=== PATIENT | female | born 1970 ===

== ENCOUNTER 2016-10-24 23:45 | Emergency (ER) | payer SELFPAY ==
[2016-10-25 01:09] LABS: BASO % 0.5 % (0.0-2.0); EOS % 0.2 % (0.0-4.0); HEMATOCRIT 29.8 % (34.0-47.0); LYMPH # 1.4 K/uL (1.0-4.3); MEAN CORPUSCULAR HEMOGLOBIN 20.3 pg (27.0-31.0); MEAN CORPUSCULAR HGB CONC 29.3 g/dL (33.0-37.0); MONO # 0.3 K/uL (0.0-0.8); NEUT # 1.9 K/uL (1.8-7.0); NEUT % 52.3 % (50.0-75.0); NRBC % 0.2 % (0.0-0.0); RED CELL DISTRIBUTION WIDTH 20.4 % (11.5-14.5); WHITE BLOOD COUNT 3.7 K/uL (4.8-10.8)
[2016-10-25 01:19] LABS: ALB/GLOB RATIO 1.1 (1.0-2.1); ALKALINE PHOSPHATASE 83 U/L (38-126); ALT/SGPT 45 U/L (9-52); AST/SGOT 67 U/L (14-36); BILIRUBIN,TOTAL 0.3 mg/dl (0.2-1.3); BLOOD UREA NITROGEN 12 mg/dl (7-17); CALCIUM 8.3 mg/dL (8.4-10.2); CARBON DIOXIDE 20 mmol/L (22-30); CHLORIDE 110 mmol/L (98-107); GFR AFRICAN-AMERICAN > 60; GLUCOSE,RANDOM 104 mg/dL (65-105); SODIUM 149 mmol/l (132-148)
[2016-10-25 01:28] LABS: ALCOHOL SERUM 392 mg/dl (0-10)
[2016-10-25] MEDS ORDERED: Potassium Chloride 20 mEq ER Tab PO ONE ×2 (01:29→09:45)
--- NOTE | 2016-10-25 01:32 | ED PDOC ---
HPI: Psych/Substance Abuse Time Seen by Provider: 10/25/16 01:00 Chief Complaint (Nursing): Alcohol Ingestion Chief Complaint (Provider): etoh History Per: EMS Additional History Per: EMS Additional Complaint(s): 45 y/o female brought in by EMS for acute alcohol intoxication. Patient sleeping; arousable to verbal stimuli. HPI limited due to patient current state. Past Medical History Reviewed: Historical Data, Nursing Documentation, Vital Signs Vital Signs: Last Vital Signs Temp 98.0 F 10/24/16 23:51 Pulse 69 10/24/16 23:51 Resp 16 10/24/16 23:51 BP 114/78 10/24/16 23:51 Pulse Ox 99 10/24/16 23:51 - Family History Family History: States: Unknown Family Hx - Immunization History Hx Tetanus Toxoid Vaccination: No Hx Influenza Vaccination: No Hx Pneumococcal Vaccination: No - Home Medications Home Medications: Ambulatory Orders Medication Instructions Recorded No Known Home Med 10/14/15 - Allergies Allergies/Adverse Reactions: Allergies Allergy/AdvReac Type Severity Reaction Status Date / Time No Known Allergies Allergy Verified 10/24/16 23:50 Review of Systems Review Of Systems: ROS cannot be obtained secondary to pt's inabilty to answer questions. Physical Exam - Reviewed Nursing Documentation Reviewed: Yes Vital Signs Reviewed: Yes - Physical Exam Appears: Positive for: Well, Non-toxic, No Acute Distress Head Exam: Positive for: ATRAUMATIC, NORMAL INSPECTION, NORMOCEPHALIC Skin: Positive for: Normal Color Eye Exam: Positive for: Normal appearance Cardiovascular/Chest: Positive for: Regular Rate, Rhythm Respiratory: Positive for: Normal Breath Sounds Gastrointestinal/Abdominal: Positive for: Normal Exam Extremity: Positive for: Normal ROM Neurologic/Psych: Positive for: Alert (responds to tactile stimuli) - Laboratory Results Result Diagrams: 10/25/16 01:04 10/25/16 01:04 - ECG O2 Sat by Pulse Oximetry: 99 ED OBSERVATION Date of observation admission: 10/25/16 Time of observation admission: 01:32 - Observation admission statement Patient is being placed in observation because:: acute alcohol intoxication - Goals of Observation Goals of observation are:: observe for clinical sobriety - Progress Note Progress Note: 10/25/16 01:32 Patient sleeping 10/25/16 3:30 Patient sleeping, no distress 5:30 Patient sleeping, no distress Potassium PO ordered for 3.0level. To give when clinically sober 10/25/16 06:02 Disposition - Clinical Impression Clinical Impression: Alcohol abuse - Disposition Disposition: Transfer of Care Disposition Time: 06:03 Condition: STABLE Patient Signed Over To: Fernando Stevenson Handoff Comments: pending clinical sobriety
--- NOTE | 2016-10-25 05:53 | ED PDOC ---
- Laboratory Results Result Diagrams: 10/25/16 01:04 10/25/16 01:04 - ECG O2 Sat by Pulse Oximetry: 99 Medical Decision Making Medical Decision Making: Patient s/o from Abdiaziz Rao PA-C at 0600 pending sobriety and re-eval. Patient s/ o to Dr. Otero at 0700 pending sobriety, potassium repletion, and re-eval. Scribe Attestation: Documented by Elbert Mccrary acting as a scribe for Fernando Stevenson MD. Provider Scribe Attestation: All medical record entries made by the Scribe were at my direction and personally dictated by me. I have reviewed the chart and agree that the record accurately reflects my personal performance of the history, physical exam, medical decision making, and the department course for this patient. I have also personally directed, reviewed, and agree with the discharge instructions and disposition. Disposition - Clinical Impression Clinical Impression: Alcohol abuse - POA Present On Arrival: None - Disposition Disposition: Transfer of Care Disposition Time: 07:00 Condition: STABLE Patient Signed Over To: Gilberto Otero Handoff Comments: pending sobriety, potassium repletion, re-eval
--- NOTE | 2016-10-25 07:08 | ED PDOC ---
- Laboratory Results Result Diagrams: 10/25/16 01:04 10/25/16 01:04 Interpretation Of Abn Labs: 3 K - ECG O2 Sat by Pulse Oximetry: 99 Pulse Ox Interpretation: Normal - Progress ED Course And Treament: 908: Stable. AAOx3. Pain free. Tolerated PO. Ambulated with no issues. Medical Decision Making Medical Decision Making: Time: 0700 Patient signed out by Dr. Stevenson pending sobriety, potassium repletion and re- evaluation Scribe Attestation: Documented by Remedios Cooper acting as a scribe for Gilberto Otero MD MD Scribe Attestation: All medical record entries made by the Scribe were at my direction and personally dictated by me. I have reviewed the chart and agree that the record accurately reflects my personal performance of the history, physical exam, medical decision making, and the department course for this patient. I have also personally directed, reviewed, and agree with the discharge instructions and disposition. Disposition - Clinical Impression Clinical Impression: Alcohol abuse, Hypokalemia - POA Present On Arrival: None - Disposition Referrals: [facility] [Outside] - 10/26/16 Disposition: Routine/Home Disposition Time: 10:34 Condition: STABLE Additional Instructions: Return if not better in 3 days. Instructions: Abuse of Alcohol (ED), Hypokalemia (ED)
[2016-10-25 12:29] VITALS: BP 108/68; PULSE 78; RESP 18; TEMP 98; O2SAT 97
== END 2016-10-25 12:00 | disposition home or self-care (01) ==
LOC: H.ER 23:45
DX: F10.129 Alcohol abuse with intoxication, unspecified (principal); E87.6 Hypokalemia
CPT/HCPCS: 80053; 82948; 85025; 99283; G0480